=== PATIENT | male | born 1955 | race Caucasian/White ===

== ENCOUNTER 2018-03-04 06:39 | Day surgery (SDC) | payer MEDICAID ==
[~2018-03-04] VITALS: Ht 193 cm; Wt 88.0 kg
[2018-03-04] MEDS ORDERED: OXYC15TA88 PO (07:01)
[2018-03-04] MEDS ORDERED: PROC10TA10 PO (07:01)
[2018-03-04] MEDS ORDERED: LIDO5CRE2 TP (07:01)
[2018-03-04] MEDS ORDERED: ONDA8TAB9 PO (07:01)
[2018-03-04] MEDS ORDERED: MORP-64 PO (07:01)
[2018-03-04 07:13] VITALS: BP 127/80
[2018-03-04 07:18] LABS: BASOPHILS # (AUTO) 0.1 X10'3 (0-0.2); BASOPHILS % (AUTO) 0.8 % (0-1); EOSINOPHILS # (AUTO) 0.3 X10'3 (0-0.9); LYMPHOCYTES # (AUTO) 1.4 X10'3 (1.1-4.8); LYMPHOCYTES % (AUTO) 8.5 % (21-51); MEAN CORPUSCULAR HEMOGLOBIN 22.8 PG (27.0-31.0); MEAN CORPUSCULAR HGB CONC 31.9 % (33.0-36.5); MEAN CORPUSCULAR VOLUME 71.5 FL (78-98); MEAN PLATELET VOLUME 7.9 FL (7.4-10.4); MONOCYTES # (AUTO) 2.1 X10'3 (0-0.9); MONOCYTES % (AUTO) 12.2 % (2-12); NEUTROPHILS % (AUTO) 76.5 % (42-75); PRE OP HEMATOCRIT 29.4 % (42.0-52.0); PRE OP PLATELET COUNT 529 X10'3 (140-440); RED BLOOD COUNT 4.11 X10'6 (4.70-6.10); RED CELL DISTRIBUTION WIDTH 26.7 % (11.5-14.5)
[2018-03-04] MEDS ORDERED: normal saline 1000ml 1,000 ML IV PRN (07:25)
[2018-03-04 07:28] LABS: INR 1.1 INR; PROTHROMBIN TIME 10.9 SECONDS (9.0-12.0)
[2018-03-04 07:31] LABS: PRE OP HEMOGLOBIN 9.4 g/dL (14.0-17.9)
[2018-03-04 07:32] LABS: ALBUMIN 2.3 G/DL (3.4-5.0); ANION GAP 10 (8-16); BLOOD UREA NITROGEN 18 MG/DL (7-18); BUN/CREATININE RATIO 18.8 (5.4-32.0); CHLORIDE 100 MMOL/L (99-107); CREATININE 0.96 MG/DL (0.60-1.10); GLUCOSE 103 MG/DL (70-104); POTASSIUM 4.2 MMOL/L (3.5-5.1); SODIUM 135 MMOL/L (135-145); TOTAL CARBON DIOXIDE 25.3 MMOL/L (24-32); eGFR 80 ML/MIN
[2018-03-04] MEDS ORDERED: fentaNYL/PF 50MCG/1 ML 2ML syringe IV PRN (08:25)
[2018-03-04] MEDS ORDERED: heparin sodium, porcine/PF 100unit/ml 5ML syringe ICATH ONE (08:25)
[2018-03-04] MEDS ORDERED: LIDOcaine 1%/PF 5ML 10 MG/ML VIAL SQ ONE (08:25)
[2018-03-04] MEDS ORDERED: midazolam 2 mg/2 ml injection IV PRN (08:25)
[2018-03-04 08:34] LABS: ANISOCYTOSIS 3+; ELLIPTOCYTES FEW; HYPOCHROMASIA 1+; MICROCYTOSIS 1+; PLATELET ESTIMATE INCREASED; POIKILOCYTOSIS 1+; POLYCHROMASIA 1+; TARGET CELLS FEW; TEAR DROP CELLS FEW
[2018-03-04] MEDS ORDERED: LIDOcaine 1%/PF 5ML 10 MG/ML VIAL ONE (08:35)
[2018-03-04] MEDS ORDERED: heparin sodium, porcine/PF 100unit/ml 5ML syringe ONE (08:42)
[2018-03-04] MEDS ORDERED: midazolam 2 mg/2 ml injection ONE (08:42)
[2018-03-04] MEDS ORDERED: fentaNYL/PF 50MCG/1 ML 2ML syringe ONE (08:43)
[2018-03-04 09:35] VITALS: BP 133/88
[2018-03-04 09:45] VITALS: BP 129/83
[2018-03-04 10:00] VITALS: BP 138/88
[2018-03-04 10:15] VITALS: BP 134/82
[2018-03-04 10:30] VITALS: BP 135/85
== END 2018-03-04 10:41 | disposition home or self-care (01) ==
LOC: SSTAY O 06:39
PROVIDERS: ATTEND Radiology Diagnostic Radiology
DX: C18.2 Malignant neoplasm of ascending colon (principal); K21.9 Gastro-esophageal reflux disease without esophagitis; E23.2 Diabetes insipidus; Z86.19 Personal history of other infectious and parasitic diseases; Z88.4 Allergy status to anesthetic agent; Z79.891 Long term (current) use of opiate analgesic; Z87.891 Personal history of nicotine dependence; Z86.2 Personal history of diseases of the blood and blood-forming organs and certain disorders involving the immune mechanism; Z85.05 Personal history of malignant neoplasm of liver; Z98.890 Other specified postprocedural states; Z79.899 Other long term (current) drug therapy
CPT/HCPCS: 36415; 36561; 76937; 77001; 80048; 85025; 85610; 99152; 99153; A6219; C1788; C1894; J1642; J2001; J2250; J3010; J7030

== ENCOUNTER 2018-03-08 06:31 | Inpatient (IN) | payer MEDICAID ==
[2018-03-08] VITALS (20 sets, daily range): BP systolic 123–171; BP diastolic 58–97
[~2018-03-08] VITALS: Ht 193 cm; Wt 87.8 kg
[~2018-03-08 06:31] MED LIST: LIDO5CRE2 TP; MORP-64 PO; ONDA8TAB9 PO; OXYC15TA88 PO; PROC10TA10 PO
[2018-03-08] MEDS ORDERED: ondansetron/PF 4mg/2ml inj IV ONE (07:25)
[2018-03-08] MEDS ORDERED: normal saline 1000ML IV soln IVB ONE (07:25)
[2018-03-08] MEDS ORDERED: morphine 4 MG/ML inj SYRINge IV ONE (07:25)
[2018-03-08 08:31] LABS: BASOPHILS % (AUTO) 0.1 % (0-1); EOSINOPHILS # (AUTO) 0.2 X10'3 (0-0.9); EOSINOPHILS % (AUTO) 2.1 % (0-6); HEMATOCRIT 27.6 % (42.0-52.0); HEMOGLOBIN 8.8 g/dl (14.0-17.9); LYMPHOCYTES # (AUTO) 1.1 X10'3 (1.1-4.8); LYMPHOCYTES % (AUTO) 8.9 % (21-51); MEAN CORPUSCULAR HEMOGLOBIN 22.6 PG (27.0-31.0); MEAN CORPUSCULAR HGB CONC 31.8 % (33.0-36.5); MEAN PLATELET VOLUME 8.1 FL (7.4-10.4); MONOCYTES # (AUTO) 1.9 X10'3 (0-0.9); MONOCYTES % (AUTO) 15.7 % (2-12); NEUTROPHILS # (AUTO) 8.7 X10'3 (1.8-7.7); NEUTROPHILS % (AUTO) 73.2 % (42-75); PLATELET COUNT 500 X10'3 (140-440); RED BLOOD COUNT 3.89 X10'6 (4.70-6.10); RED CELL DISTRIBUTION WIDTH 26.5 % (11.5-14.5); WHITE BLOOD COUNT 11.9 X10'3 (4.5-11.0)
[2018-03-08 08:36] LABS: ALANINE AMINOTRANSFERASE 72 U/L (12-78); ALBUMIN 2.3 G/DL (3.4-5.0); ALBUMIN/GLOBULIN RATIO 0.5 (1.1-1.5); ALKALINE PHOSPHATASE 170 IU/L (46-116); ANION GAP 11 (8-16); ASPARTATE AMINO TRANSFERASE 86 U/L (10-37); BILIRUBIN,TOTAL 0.5 MG/DL (0.1-1.0); BLOOD UREA NITROGEN 21 MG/DL (7-18); BUN/CREATININE RATIO 22.1 (5.4-32.0); CHLORIDE 101 MMOL/L (99-107); CREATININE 0.95 MG/DL (0.60-1.10); GLUCOSE 92 MG/DL (70-104); POTASSIUM 3.8 MMOL/L (3.5-5.1); SODIUM 137 MMOL/L (135-145); TOTAL CARBON DIOXIDE 25.4 MMOL/L (24-32); TOTAL PROTEIN 7.1 G/DL (6.4-8.2); eGFR 81 ML/MIN
[2018-03-08 08:45] LABS: ANISOCYTOSIS 3+; HYPOCHROMASIA 1+; PLATELET ESTIMATE INCREASED
[2018-03-08 08:46] LABS: POLYCHROMASIA 1+
[2018-03-08 08:51] LABS: INR 1.1 INR; PROTHROMBIN TIME 11.4 SECONDS (9.0-12.0)
[2018-03-08] MEDS ORDERED: HYDROcodone/acetaminophen 10/325mg tab PO ONE (09:10)
[2018-03-08] MEDS ORDERED: normal saline 1000ml 1,000 ML IV ONE (09:10)
[2018-03-08 10:13] LABS: CLARITY,URINE CLEAR (Clear); COLOR,URINE YELLOW (Yellow); GLUCOSE, URINE NEGATIVE (Neg); KETONES,URINE NEGATIVE (Neg); LEUKOCYTE ESTERASE ,URINE NEGATIVE (Neg); NITRITES, URINE NEGATIVE (Neg); OCCULT BLOOD,URINE NEGATIVE (Neg); PH,URINE 5.5 (4.8-8.0); PROTEIN,URINE NEGATIVE (Neg); UROBILINOGEN,URINE 0.2 E.U/dL (0.2-1.0)
[2018-03-08 10:20] LABS: UA COLLECTION TYPE CLN CATCH MIDSTREAM
[2018-03-08] MEDS ORDERED: potassium Cl 40MEQ/NS 500ml 500 ML IV PRN ×2 (11:50)
[2018-03-08] MEDS ORDERED: acetaminophen 325mg tablet PO PRN ×2 (11:50)
[2018-03-08] MEDS ORDERED: morphine 2 MG/ML inj. syringe IV PRN ×2 (11:50)
[2018-03-08] MEDS ORDERED: mag hydrox/Alum hydrox/simeth 30ml oral suspension PO PRN (11:50)
[2018-03-08] MEDS ORDERED: HYDROcodone/acetaminophen 10/325mg tab PO PRN (11:50)
[2018-03-08] MEDS ORDERED: magnesium hydroxide 30ml (MOM) UD suspension PO PRN (11:50)
[2018-03-08] MEDS ORDERED: magnesium 4gm in 100ml NS 100 ML IV PRN (11:50)
[2018-03-08] MEDS ORDERED: magnesium Cl slow-release 64mg tablet PO PRN (11:50)
[2018-03-08] MEDS ORDERED: HYDROcodone/acetaminophen 5mg/325mg tablet PO PRN (11:50)
[2018-03-08] MEDS ORDERED: potassium Cl 20 mEq SR tablet PO PRN ×2 (11:50)
[2018-03-08] MEDS ORDERED: magnesium 1gm/100ml D5W IVPB 100 ML IV PRN (11:50)
[2018-03-08] MEDS: normal saline 1000ml 1,000 ML IV SCH ×2 (14:10→17:58)
[2018-03-08] MEDS ORDERED: BUPIVAcaine/PF 2.5mg/ml (0.25%) 10ml vial ONE (14:26)
[2018-03-08] MEDS ORDERED: ceFAZolin 1000mg inj ONE (14:26)
[2018-03-08] MEDS ORDERED: ringers solution, lacted 1,000 ML IV SCH (15:04)
[2018-03-08] MEDS ORDERED: meperidine/PF 25mg/ml syringe IV PRN ×3 (15:05)
[2018-03-08] MEDS ORDERED: morphine 4 MG/ML inj SYRINge IV PRN (15:05)
[2018-03-08] MEDS ORDERED: proCHLORperazine 10 MG/2 ml inj IV PRN (15:05)
[2018-03-08] MEDS ORDERED: ondansetron/PF 4mg/2ml inj IV PRN (15:05)
[2018-03-08] MEDS ORDERED: neostigmine methylsulfate 1 MG/ML 10ml vial ONE (15:15)
[2018-03-08] MEDS ORDERED: sevoflurane 250ml liquid IH ONE (15:15)
[2018-03-08] MEDS ORDERED: dexamethasone sod phosphate 10mg/ml inj ONE (15:15)
[2018-03-08] MEDS ORDERED: midazolam 2 mg/2 ml injection ONE (15:27)
[2018-03-08] MEDS ORDERED: LIDOcaine 2% (20mg/ml) 5ml vial ONE (15:29)
[2018-03-08] MEDS ORDERED: propofol inj 20 ML IV ONE (15:29)
[2018-03-08] MEDS ORDERED: fentaNYL /PF 50mcg/ml 5ml ampule ONE (15:29)
[2018-03-08] MEDS ORDERED: ondansetron/PF 4mg/2ml inj ONE (15:38)
[2018-03-08] MEDS ORDERED: ketorolac trometh. 30mg/ml inj. ONE (16:35)
[2018-03-08] MEDS ORDERED: glycopyrrolate 0.2mg/ml inj ONE (16:37)
[2018-03-08] MEDS: morphine 4 MG/ML inj SYRINge IV PRN ×2 (17:00→17:30)
[2018-03-08 17:08] LABS: HEMATOCRIT 25.3 % (42.0-52.0); HEMOGLOBIN 7.9 g/dl (14.0-17.9); MEAN CORPUSCULAR HEMOGLOBIN 22.2 PG (27.0-31.0); MEAN CORPUSCULAR VOLUME 71.5 FL (78-98); MEAN PLATELET VOLUME 7.6 FL (7.4-10.4); PLATELET COUNT 495 X10'3 (140-440); RED BLOOD COUNT 3.54 X10'6 (4.70-6.10); RED CELL DISTRIBUTION WIDTH 26.7 % (11.5-14.5); WHITE BLOOD COUNT 10.9 X10'3 (4.5-11.0)
[2018-03-08] MEDS ORDERED: naloxone 0.4 mg/ml inj IV PRN (18:10)
[2018-03-08] MEDS ORDERED: CADD PCA waste documentation MC PRN (18:10)
[2018-03-08] MEDS: HYDROmorphone/NS 1 mg/ml CADD 50 ML IV SCH ×3 (18:33→23:00)
[2018-03-08] MEDS: heparin, porcine 5000 units/ml vial SQ SCH (20:00)
[2018-03-08] MEDS ORDERED: temazepam 15mg capsule PO PRN (21:00)
[2018-03-09] VITALS (8 sets, daily range): BP systolic 137–153; BP diastolic 77–92
[2018-03-09] MEDS: HYDROmorphone/NS 1 mg/ml CADD 50 ML IV SCH ×12 (01:00→23:22)
[2018-03-09] MEDS: normal saline 1000ml 1,000 ML IV SCH ×2 (04:03→15:27)
[2018-03-09 04:11] LABS: BASOPHILS % (AUTO) 0.1 % (0-1); EOSINOPHILS % (AUTO) 0.2 % (0-6); HEMATOCRIT 33.7 % (42.0-52.0); HEMOGLOBIN 10.6 g/dl (14.0-17.9); LYMPHOCYTES # (AUTO) 0.8 X10'3 (1.1-4.8); LYMPHOCYTES % (AUTO) 3.7 % (21-51); MEAN CORPUSCULAR HEMOGLOBIN 23.5 PG (27.0-31.0); MEAN CORPUSCULAR HGB CONC 31.5 % (33.0-36.5); MEAN CORPUSCULAR VOLUME 74.5 FL (78-98); MEAN PLATELET VOLUME 7.5 FL (7.4-10.4); MONOCYTES # (AUTO) 1.3 X10'3 (0-0.9); MONOCYTES % (AUTO) 6.1 % (2-12); NEUTROPHILS # (AUTO) 18.8 X10'3 (1.8-7.7); NEUTROPHILS % (AUTO) 89.9 % (42-75); PLATELET COUNT 494 X10'3 (140-440); RED BLOOD COUNT 4.52 X10'6 (4.70-6.10); RED CELL DISTRIBUTION WIDTH 25.7 % (11.5-14.5); WHITE BLOOD COUNT 20.9 X10'3 (4.5-11.0)
[2018-03-09 04:19] LABS: ALANINE AMINOTRANSFERASE 54 U/L (12-78); ALBUMIN 1.9 G/DL (3.4-5.0); ALBUMIN/GLOBULIN RATIO 0.5 (1.1-1.5); ALKALINE PHOSPHATASE 128 IU/L (46-116); ANION GAP 11 (8-16); ASPARTATE AMINO TRANSFERASE 67 U/L (10-37); BILIRUBIN,TOTAL 1.3 MG/DL (0.1-1.0); BLOOD UREA NITROGEN 16 MG/DL (7-18); BUN/CREATININE RATIO 19.8 (5.4-32.0); CALCIUM 7.7 MG/DL (8.5-10.1); CHLORIDE 104 MMOL/L (99-107); CREATININE 0.81 MG/DL (0.60-1.10); GLUCOSE 108 MG/DL (70-104); MAGNESIUM 1.8 MG/DL (1.5-2.4); POTASSIUM 4.5 MMOL/L (3.5-5.1); SODIUM 137 MMOL/L (135-145); TOTAL CARBON DIOXIDE 22.4 MMOL/L (24-32); TOTAL PROTEIN 5.9 G/DL (6.4-8.2); eGFR > 90 ML/MIN
[2018-03-09 04:24] LABS: INR 1.2 INR; PROTHROMBIN TIME 11.6 SECONDS (9.0-12.0)
[2018-03-09 05:40] LABS: ANISOCYTOSIS 3+; PLATELET ESTIMATE INCREASED; TOTAL CELLS COUNTED 100
[2018-03-09 05:41] LABS: POLYCHROMASIA FEW; TARGET CELLS FEW
[2018-03-09] MEDS: K and/or MAG REPLACEMENT MC SCH (07:28)
[2018-03-09] MEDS: heparin, porcine 5000 units/ml vial SQ SCH ×2 (08:39→20:03)
[2018-03-09] MEDS ORDERED: CADD PCA waste documentation MC SCH (23:20)
[2018-03-10] VITALS: BP 150/94
[2018-03-10] MEDS: normal saline 1000ml 1,000 ML IV SCH ×2 (02:31→13:16)
[2018-03-10] MEDS: HYDROmorphone/NS 1 mg/ml CADD 50 ML IV SCH ×4 (02:33→09:00)
[2018-03-10 05:14] LABS: BASOPHILS % (AUTO) 0.1 % (0-1); EOSINOPHILS # (AUTO) 0.2 X10'3 (0-0.9); EOSINOPHILS % (AUTO) 1.6 % (0-6); HEMATOCRIT 32.8 % (42.0-52.0); HEMOGLOBIN 10.1 g/dl (14.0-17.9); LYMPHOCYTES # (AUTO) 1.1 X10'3 (1.1-4.8); LYMPHOCYTES % (AUTO) 6.9 % (21-51); MEAN CORPUSCULAR HEMOGLOBIN 23.4 PG (27.0-31.0); MEAN CORPUSCULAR HGB CONC 30.9 % (33.0-36.5); MEAN CORPUSCULAR VOLUME 75.7 FL (78-98); MEAN PLATELET VOLUME 8.2 FL (7.4-10.4); MONOCYTES # (AUTO) 1.8 X10'3 (0-0.9); MONOCYTES % (AUTO) 11.4 % (2-12); NEUTROPHILS # (AUTO) 12.8 X10'3 (1.8-7.7); PLATELET COUNT 508 X10'3 (140-440); RED BLOOD COUNT 4.33 X10'6 (4.70-6.10); RED CELL DISTRIBUTION WIDTH 26.2 % (11.5-14.5)
[2018-03-10 05:45] LABS: INR 1.2 INR; PROTHROMBIN TIME 11.6 SECONDS (9.0-12.0)
[2018-03-10 05:57] LABS: ALANINE AMINOTRANSFERASE 49 U/L (12-78); ALBUMIN 1.9 G/DL (3.4-5.0); ALBUMIN/GLOBULIN RATIO 0.4 (1.1-1.5); ALKALINE PHOSPHATASE 117 IU/L (46-116); ANION GAP 8 (8-16); ASPARTATE AMINO TRANSFERASE 66 U/L (10-37); BILIRUBIN,TOTAL 0.7 MG/DL (0.1-1.0); BLOOD UREA NITROGEN 15 MG/DL (7-18); BUN/CREATININE RATIO 16.9 (5.4-32.0); CALCIUM 8.1 MG/DL (8.5-10.1); CHLORIDE 105 MMOL/L (99-107); CREATININE 0.89 MG/DL (0.60-1.10); GLUCOSE 99 MG/DL (70-104); POTASSIUM 4.1 MMOL/L (3.5-5.1); SODIUM 138 MMOL/L (135-145); TOTAL CARBON DIOXIDE 25.5 MMOL/L (24-32); TOTAL PROTEIN 6.3 G/DL (6.4-8.2); eGFR 87 ML/MIN
[2018-03-10 07:00] VITALS: BP 164/97
[2018-03-10] MEDS: K and/or MAG REPLACEMENT MC SCH (08:00)
[2018-03-10] MEDS: heparin, porcine 5000 units/ml vial SQ SCH ×2 (08:18→19:51)
[2018-03-10] MEDS ORDERED: HYDROmorphone inj. 0.5 MG/0.5 ML DISP.SYRIN IV PRN (10:50)
[2018-03-10] MEDS ORDERED: HYDROmorphone 1 mg/ml syringe IV PRN (10:53)
[2018-03-10 11:00] VITALS: BP 150/86
[2018-03-10] MEDS: ketorolac trometh. 30mg/ml inj. IV SCH ×3 (11:30→19:51)
[2018-03-10] MEDS: HYDROmorphone 1 mg/ml syringe IV PRN ×3 (11:36→20:29)
[2018-03-10] MEDS: docusate sodium 100mg/10ml UD cup PO SCH (19:51)
[2018-03-10 20:00] VITALS: BP 157/99
[2018-03-11 00:04] VITALS: BP 153/88
[2018-03-11] MEDS: normal saline 1000ml 1,000 ML IV SCH ×2 (00:44→12:27)
[2018-03-11] MEDS: HYDROmorphone 1 mg/ml syringe IV PRN ×6 (00:44→23:19)
[2018-03-11] MEDS: ketorolac trometh. 30mg/ml inj. IV SCH ×4 (01:38→20:00)
[2018-03-11] MEDS: ondansetron/PF 4mg/2ml inj IV PRN ×2 (06:52→19:22)
[2018-03-11] MEDS: heparin, porcine 5000 units/ml vial SQ SCH ×2 (07:37→19:33)
[2018-03-11 07:54] VITALS: BP 145/84
[2018-03-11] MEDS: K and/or MAG REPLACEMENT MC SCH (08:00)
[2018-03-11] MEDS: docusate sodium 100mg/10ml UD cup PO SCH ×3 (08:00→19:33)
[2018-03-11 08:16] LABS: BASOPHILS % (AUTO) 0.2 % (0-1); EOSINOPHILS % (AUTO) 0.3 % (0-6); LYMPHOCYTES # (AUTO) 0.6 X10'3 (1.1-4.8); LYMPHOCYTES % (AUTO) 6.3 % (21-51); MEAN CORPUSCULAR HEMOGLOBIN 23.6 PG (27.0-31.0); MEAN CORPUSCULAR HGB CONC 31.3 % (33.0-36.5); MEAN CORPUSCULAR VOLUME 75.3 FL (78-98); MEAN PLATELET VOLUME 8.2 FL (7.4-10.4); MONOCYTES # (AUTO) 1.5 X10'3 (0-0.9); MONOCYTES % (AUTO) 14.5 % (2-12); NEUTROPHILS # (AUTO) 7.9 X10'3 (1.8-7.7); NEUTROPHILS % (AUTO) 78.7 % (42-75); PLATELET COUNT 515 X10'3 (140-440); RED BLOOD COUNT 4.25 X10'6 (4.70-6.10); RED CELL DISTRIBUTION WIDTH 26.4 % (11.5-14.5); WHITE BLOOD COUNT 10.1 X10'3 (4.5-11.0)
[2018-03-11 08:34] LABS: ALANINE AMINOTRANSFERASE 45 U/L (12-78); ALBUMIN 1.7 G/DL (3.4-5.0); ALBUMIN/GLOBULIN RATIO 0.4 (1.1-1.5); ALKALINE PHOSPHATASE 106 IU/L (46-116); ANION GAP 10 (8-16); ASPARTATE AMINO TRANSFERASE 66 U/L (10-37); BILIRUBIN,TOTAL 1.1 MG/DL (0.1-1.0); BLOOD UREA NITROGEN 18 MG/DL (7-18); BUN/CREATININE RATIO 18.6 (5.4-32.0); CALCIUM 7.5 MG/DL (8.5-10.1); CHLORIDE 105 MMOL/L (99-107); CREATININE 0.97 MG/DL (0.60-1.10); GLUCOSE 127 MG/DL (70-104); MAGNESIUM 1.9 MG/DL (1.5-2.4); POTASSIUM 3.7 MMOL/L (3.5-5.1); SODIUM 138 MMOL/L (135-145); TOTAL CARBON DIOXIDE 22.7 MMOL/L (24-32); TOTAL PROTEIN 5.8 G/DL (6.4-8.2); eGFR 79 ML/MIN
[2018-03-11 08:58] LABS: ANISOCYTOSIS 3+; PLATELET ESTIMATE INCREASED
[2018-03-11 11:41] VITALS: BP 159/97
[2018-03-11] MEDS: potassium Cl 20mEq in D5-NS 1,000 ML IV SCH (19:22)
[2018-03-11 20:00] VITALS: BP 155/98
[2018-03-11] MEDS ORDERED: ondansetron/PF 4mg/2ml inj IV PRN (23:15)
[2018-03-11] MEDS ORDERED: HYDROmorphone 2mg/ml vial IV PRN (23:15)
[2018-03-11] MEDS: proCHLORperazine 10 MG/2 ml inj IV PRN (23:18)
[2018-03-12 00:12] VITALS: BP 156/88
[2018-03-12] MEDS: HYDROmorphone 1 mg/ml syringe IV PRN ×6 (04:00→17:25)
[2018-03-12] MEDS: potassium Cl 20mEq in D5-NS 1,000 ML IV SCH ×2 (04:03→17:57)
[2018-03-12 07:06] VITALS: BP 140/87
[2018-03-12] MEDS: docusate sodium 100mg/10ml UD cup PO SCH ×2 (08:00→20:00)
[2018-03-12] MEDS: K and/or MAG REPLACEMENT MC SCH (08:00)
[2018-03-12] MEDS: proCHLORperazine 10 MG/2 ml inj IV PRN (08:22)
[2018-03-12] MEDS: heparin, porcine 5000 units/ml vial SQ SCH ×2 (08:23→19:53)
[2018-03-12 09:09] LABS: ALANINE AMINOTRANSFERASE 44 U/L (12-78); ALBUMIN 1.7 G/DL (3.4-5.0); ALBUMIN/GLOBULIN RATIO 0.4 (1.1-1.5); ALKALINE PHOSPHATASE 106 IU/L (46-116); ANION GAP 9 (8-16); ASPARTATE AMINO TRANSFERASE 64 U/L (10-37); BILIRUBIN,TOTAL 0.9 MG/DL (0.1-1.0); BLOOD UREA NITROGEN 22 MG/DL (7-18); BUN/CREATININE RATIO 21.2 (5.4-32.0); CALCIUM 7.7 MG/DL (8.5-10.1); CHLORIDE 107 MMOL/L (99-107); CREATININE 1.04 MG/DL (0.60-1.10); GLUCOSE 145 MG/DL (70-104); MAGNESIUM 2.2 MG/DL (1.5-2.4); SODIUM 141 MMOL/L (135-145); TOTAL CARBON DIOXIDE 24.9 MMOL/L (24-32); eGFR 73 ML/MIN
[2018-03-12] MEDS: pantoprazole 40 MG vial IV SCH (10:51)
[2018-03-12 10:59] VITALS: BP 159/93
[2018-03-12 17:25] LABS: ABG BASE EXCESS -5.2 mmol/L (-2.0-3.0); ABG HCO3 19.9 mmol/L (22.0-26.0); ABG OXYGEN SATURATION 89.5 % (95-98); ABG PCO2 (T) 36.4 mmHg (35.0-48.0); ABG PH (T) 7.353 (7.350-7.450); ABG PO2 (T) 59.8 mmHg (83-108); FCOHb 0.9 % (0.5-1.5); FMetHb 0.3 % (0.3-1.12); FO2Hb 88.4 % (94-100); PATIENT TEMPERATURE 36.4; TOTAL HEMOGLOBIN 11.8 G/dl (14.0-18.0)
[2018-03-12] MEDS ORDERED: normal saline 1000ml 1,000 ML IV SCH (17:30)
[2018-03-12 17:33] LABS: BASOPHILS % (AUTO) 0.6 % (0-1); EOSINOPHILS % (AUTO) 0.2 % (0-6); HEMATOCRIT 35.6 % (42.0-52.0); HEMOGLOBIN 11.3 g/dl (14.0-17.9); LYMPHOCYTES % (AUTO) 12.8 % (21-51); MEAN CORPUSCULAR HEMOGLOBIN 23.8 PG (27.0-31.0); MEAN CORPUSCULAR HGB CONC 31.7 % (33.0-36.5); MEAN CORPUSCULAR VOLUME 75.2 FL (78-98); MEAN PLATELET VOLUME 7.8 FL (7.4-10.4); MONOCYTES # (AUTO) 0.7 X10'3 (0-0.9); MONOCYTES % (AUTO) 9.2 % (2-12); NEUTROPHILS # (AUTO) 6.2 X10'3 (1.8-7.7); NEUTROPHILS % (AUTO) 77.2 % (42-75); PLATELET COUNT 763 X10'3 (140-440); RED BLOOD COUNT 4.73 X10'6 (4.70-6.10); RED CELL DISTRIBUTION WIDTH 26.9 % (11.5-14.5)
[2018-03-12] MEDS ORDERED: hydrALAZINE 20mg/ml inj. IV ONE (17:35)
[2018-03-12 17:45] LABS: ALANINE AMINOTRANSFERASE 46 U/L (12-78); ALBUMIN 1.9 G/DL (3.4-5.0); ALBUMIN/GLOBULIN RATIO 0.4 (1.1-1.5); ALKALINE PHOSPHATASE 116 IU/L (46-116); ANION GAP 10 (8-16); ASPARTATE AMINO TRANSFERASE 67 U/L (10-37); BILIRUBIN,TOTAL 0.9 MG/DL (0.1-1.0); BLOOD UREA NITROGEN 25 MG/DL (7-18); CHLORIDE 107 MMOL/L (99-107); CREATININE 1.39 MG/DL (0.60-1.10); GLUCOSE 186 MG/DL (70-104); POTASSIUM 4.4 MMOL/L (3.5-5.1); SODIUM 142 MMOL/L (135-145); TOTAL CARBON DIOXIDE 25.3 MMOL/L (24-32); TOTAL PROTEIN 6.7 G/DL (6.4-8.2); eGFR 52 ML/MIN
[2018-03-12] MEDS ORDERED: HYDROmorphone/NS 1 mg/ml CADD 50 ML IV SCH (17:45)
[2018-03-12] MEDS ORDERED: CADD PCA waste documentation MC SCH (17:50)
[2018-03-12] MEDS ORDERED: hydrALAZINE 20mg/ml inj. IV PRN (17:50)
[2018-03-12 18:16] LABS: ANISOCYTOSIS 3+; HYPOCHROMASIA 1+; PLATELET ESTIMATE INCREASED; TARGET CELLS 1+
[2018-03-12 18:17] LABS: MICROCYTOSIS FEW; POLYCHROMASIA FEW
[2018-03-12 18:18] LABS: ELLIPTOCYTES FEW
[2018-03-12 19:00] VITALS: BP 147/85
[2018-03-12] MEDS: albuterol 2.5 MG/3 ML nebule NEB SCH ×2 (19:06→23:02)
[2018-03-12] MEDS: piperacillin/tazo 4.5gm/100ml 100 ML IV SCH (19:52)
[2018-03-12] MEDS: methylPREDNISolone sod succ 125mg/2ml vial IV SCH ×2 (19:54→20:00)
[2018-03-12] MEDS: HYDROmorphone/NS 1 mg/ml CADD 50 ML IV SCH ×3 (20:04→23:00)
[2018-03-12 23:00] VITALS: BP 134/84
[2018-03-13] VITALS (7 sets, daily range): BP systolic 113–128; BP diastolic 72–83
[2018-03-13] MEDS: piperacillin/tazo 4.5gm/100ml 100 ML IV SCH ×3 (00:50→16:23)
[2018-03-13] MEDS: HYDROmorphone/NS 1 mg/ml CADD 50 ML IV SCH ×11 (01:00→23:00)
[2018-03-13] MEDS: albuterol 2.5 MG/3 ML nebule NEB SCH ×6 (02:53→23:19)
[2018-03-13] MEDS: potassium Cl 20mEq in D5-NS 1,000 ML IV SCH ×2 (03:28→10:31)
[2018-03-13] MEDS: methylPREDNISolone sod succ 125mg/2ml vial IV SCH ×3 (03:36→22:12)
[2018-03-13 06:13] LABS: ALANINE AMINOTRANSFERASE 35 U/L (12-78); ALBUMIN 1.5 G/DL (3.4-5.0); ALBUMIN/GLOBULIN RATIO 0.4 (1.1-1.5); ALKALINE PHOSPHATASE 90 IU/L (46-116); ANION GAP 9 (8-16); ASPARTATE AMINO TRANSFERASE 51 U/L (10-37); BILIRUBIN,TOTAL 0.6 MG/DL (0.1-1.0); BLOOD UREA NITROGEN 27 MG/DL (7-18); BUN/CREATININE RATIO 19.9 (5.4-32.0); CALCIUM 7.5 MG/DL (8.5-10.1); CHLORIDE 111 MMOL/L (99-107); CREATININE 1.36 MG/DL (0.60-1.10); GLUCOSE 207 MG/DL (70-104); MAGNESIUM 2.3 MG/DL (1.5-2.4); POTASSIUM 4.6 MMOL/L (3.5-5.1); SODIUM 145 MMOL/L (135-145); TOTAL CARBON DIOXIDE 25.5 MMOL/L (24-32); TOTAL PROTEIN 5.7 G/DL (6.4-8.2); eGFR 53 ML/MIN
[2018-03-13] MEDS: K and/or MAG REPLACEMENT MC SCH (08:00)
[2018-03-13] MEDS: docusate sodium 100mg/10ml UD cup PO SCH ×2 (08:00→20:00)
[2018-03-13] MEDS: pantoprazole 40 MG vial IV SCH (08:57)
[2018-03-13] MEDS: heparin, porcine 5000 units/ml vial SQ SCH ×2 (08:59→22:13)
[2018-03-13] MEDS ORDERED: fat emulsion IV 181.82 ML, MVI, adult No.4 with vit. K 4.55 ML, Trace element-5 inj. 0.... IV SCH ×4 (13:54)
[2018-03-13] MEDS ORDERED: magnesium 4gm in 100ml NS 100 ML IV PRN (13:55)
[2018-03-13] MEDS ORDERED: magnesium Cl slow-release 64mg tablet PO PRN (13:55)
[2018-03-13] MEDS ORDERED: magnesium 1gm/100ml D5W IVPB 100 ML IV PRN (13:55)
[2018-03-13 15:13] LABS: ALANINE AMINOTRANSFERASE 33 U/L (12-78); ALBUMIN 1.6 G/DL (3.4-5.0); ALBUMIN/GLOBULIN RATIO 0.4 (1.1-1.5); ALKALINE PHOSPHATASE 83 IU/L (46-116); ANION GAP 8 (8-16); ASPARTATE AMINO TRANSFERASE 50 U/L (10-37); BILIRUBIN,TOTAL 0.5 MG/DL (0.1-1.0); BLOOD UREA NITROGEN 28 MG/DL (7-18); BUN/CREATININE RATIO 22.4 (5.4-32.0); CALCIUM 8.1 MG/DL (8.5-10.1); CHLORIDE 112 MMOL/L (99-107); CREATININE 1.25 MG/DL (0.60-1.10); GLUCOSE 189 MG/DL (70-104); MAGNESIUM 2.4 MG/DL (1.5-2.4); POTASSIUM 4.3 MMOL/L (3.5-5.1); PREALBUMIN 5.9 MG/DL (19-36); SODIUM 144 MMOL/L (135-145); TOTAL CARBON DIOXIDE 24.5 MMOL/L (24-32); TOTAL PROTEIN 5.9 G/DL (6.4-8.2); TRIGLYCERIDES 108 MG/DL (20-135); eGFR 59 ML/MIN
[2018-03-13] MEDS ORDERED: Dextrose 10%-water IV solution 1,000 ML IV PRN (21:00)
[2018-03-13] MEDS: fat emulsion IV 200 ML, MVI, adult No.4 with vit. K 10 ML, Trace element-5 inj. 1 ML in... IV SCH ×4 (23:09)
[2018-03-14] MEDS: piperacillin/tazo 4.5gm/100ml 100 ML IV SCH ×3 (00:49→16:43)
[2018-03-14] MEDS: HYDROmorphone/NS 1 mg/ml CADD 50 ML IV SCH ×12 (01:00→23:00)
[2018-03-14 03:00] VITALS: BP 142/78
[2018-03-14] MEDS: albuterol 2.5 MG/3 ML nebule NEB SCH ×6 (03:15→23:24)
[2018-03-14 05:56] LABS: BASOPHILS % (AUTO) 0 % (0-1); EOSINOPHILS % (AUTO) 0 % (0-6); HEMATOCRIT 30.2 % (42.0-52.0); HEMOGLOBIN 9.3 g/dl (14.0-17.9); LYMPHOCYTES # (AUTO) 0.6 X10'3 (1.1-4.8); LYMPHOCYTES % (AUTO) 5.6 % (21-51); MEAN CORPUSCULAR HEMOGLOBIN 23.2 PG (27.0-31.0); MEAN CORPUSCULAR HGB CONC 30.8 % (33.0-36.5); MEAN CORPUSCULAR VOLUME 75.4 FL (78-98); MEAN PLATELET VOLUME 8.2 FL (7.4-10.4); MONOCYTES % (AUTO) 8.9 % (2-12); NEUTROPHILS # (AUTO) 9.3 X10'3 (1.8-7.7); NEUTROPHILS % (AUTO) 85.5 % (42-75); PLATELET COUNT 411 X10'3 (140-440); RED BLOOD COUNT 4.01 X10'6 (4.70-6.10); RED CELL DISTRIBUTION WIDTH 26.9 % (11.5-14.5); WHITE BLOOD COUNT 10.9 X10'3 (4.5-11.0)
[2018-03-14 06:00] VITALS: BP 141/81
[2018-03-14 06:29] LABS: ALANINE AMINOTRANSFERASE 33 U/L (12-78); ALBUMIN 1.7 G/DL (3.4-5.0); ALBUMIN/GLOBULIN RATIO 0.4 (1.1-1.5); ALKALINE PHOSPHATASE 87 IU/L (46-116); ANION GAP 9 (8-16); ASPARTATE AMINO TRANSFERASE 52 U/L (10-37); BILIRUBIN,TOTAL 0.4 MG/DL (0.1-1.0); BLOOD UREA NITROGEN 25 MG/DL (7-18); BUN/CREATININE RATIO 19.7 (5.4-32.0); CALCIUM 8.3 MG/DL (8.5-10.1); CHLORIDE 110 MMOL/L (99-107); CREATININE 1.27 MG/DL (0.60-1.10); GLUCOSE 178 MG/DL (70-104); MAGNESIUM 2.4 MG/DL (1.5-2.4); PHOSPHORUS 4.5 MG/DL (2.3-4.5); POTASSIUM 4.6 MMOL/L (3.5-5.1); PREALBUMIN 6.7 MG/DL (19-36); SODIUM 143 MMOL/L (135-145); TOTAL CARBON DIOXIDE 24.1 MMOL/L (24-32); TOTAL PROTEIN 6.1 G/DL (6.4-8.2); TRIGLYCERIDES 124 MG/DL (20-135); eGFR 58 ML/MIN
[2018-03-14 07:35] LABS: ANISOCYTOSIS 3+; PLATELET ESTIMATE NORMAL
[2018-03-14 07:36] LABS: HYPOCHROMASIA 1+
[2018-03-14 07:37] LABS: MICROCYTOSIS 1+
[2018-03-14] MEDS: K and/or MAG REPLACEMENT MC SCH (08:00)
[2018-03-14] MEDS: docusate sodium 100mg/10ml UD cup PO SCH ×2 (08:00→20:00)
[2018-03-14] MEDS: pantoprazole 40 MG vial IV SCH (08:11)
[2018-03-14] MEDS: methylPREDNISolone sod succ 125mg/2ml vial IV SCH (08:11)
[2018-03-14] MEDS: heparin, porcine 5000 units/ml vial SQ SCH ×2 (08:11→21:36)
[2018-03-14 11:00] VITALS: BP 140/76
[2018-03-14 15:00] VITALS: BP 130/80
[2018-03-14 19:00] VITALS: BP 121/64
[2018-03-14] MEDS: methylPREDNISolone sod succ/PF 40mg inj. IV SCH (21:36)
[2018-03-14 22:00] VITALS: BP 128/75
[2018-03-15] MEDS: piperacillin/tazo 4.5gm/100ml 100 ML IV SCH ×4 (00:05→23:46)
[2018-03-15] MEDS: HYDROmorphone/NS 1 mg/ml CADD 50 ML IV SCH ×5 (01:00→09:00)
[2018-03-15 03:00] VITALS: BP 138/83
[2018-03-15 03:19] LABS: UREA NITROGEN 24HR,URINE 14.1 GM/24HR (7-20)
[2018-03-15] MEDS: albuterol 2.5 MG/3 ML nebule NEB SCH ×6 (03:38→23:07)
[2018-03-15] MEDS: fat emulsion IV 200 ML, MVI, adult No.4 with vit. K 10 ML, Trace element-5 inj. 1 ML in... IV SCH ×4 (05:09)
[2018-03-15 06:00] VITALS: BP 143/85
[2018-03-15 06:59] LABS: BASOPHILS % (AUTO) 0 % (0-1); EOSINOPHILS % (AUTO) 0 % (0-6); HEMATOCRIT 31.4 % (42.0-52.0); HEMOGLOBIN 9.7 g/dl (14.0-17.9); LYMPHOCYTES # (AUTO) 0.6 X10'3 (1.1-4.8); LYMPHOCYTES % (AUTO) 4.1 % (21-51); MEAN CORPUSCULAR HEMOGLOBIN 23.4 PG (27.0-31.0); MEAN CORPUSCULAR HGB CONC 30.9 % (33.0-36.5); MEAN CORPUSCULAR VOLUME 75.6 FL (78-98); MEAN PLATELET VOLUME 8.6 FL (7.4-10.4); MONOCYTES # (AUTO) 1.3 X10'3 (0-0.9); MONOCYTES % (AUTO) 8.6 % (2-12); NEUTROPHILS # (AUTO) 13.5 X10'3 (1.8-7.7); NEUTROPHILS % (AUTO) 87.3 % (42-75); PLATELET COUNT 375 X10'3 (140-440); RED BLOOD COUNT 4.15 X10'6 (4.70-6.10); RED CELL DISTRIBUTION WIDTH 27.1 % (11.5-14.5); WHITE BLOOD COUNT 15.5 X10'3 (4.5-11.0)
[2018-03-15 07:33] LABS: ANISOCYTOSIS 3+; MICROCYTOSIS 1+; PLATELET ESTIMATE NORMAL
[2018-03-15 07:34] LABS: HYPOCHROMASIA 1+; POIKILOCYTOSIS FEW; POLYCHROMASIA FEW; TARGET CELLS FEW
[2018-03-15 07:35] LABS: ALANINE AMINOTRANSFERASE 34 U/L (12-78); ALBUMIN 1.8 G/DL (3.4-5.0); ALBUMIN/GLOBULIN RATIO 0.4 (1.1-1.5); ALKALINE PHOSPHATASE 94 IU/L (46-116); ANION GAP 9 (8-16); ASPARTATE AMINO TRANSFERASE 53 U/L (10-37); BILIRUBIN,TOTAL 0.4 MG/DL (0.1-1.0); BLOOD UREA NITROGEN 30 MG/DL (7-18); BUN/CREATININE RATIO 31.9 (5.4-32.0); CALCIUM 8.4 MG/DL (8.5-10.1); CHLORIDE 107 MMOL/L (99-107); CREATININE 0.94 MG/DL (0.60-1.10); GLUCOSE 175 MG/DL (70-104); MAGNESIUM 2.2 MG/DL (1.5-2.4); PHOSPHORUS 3.4 MG/DL (2.3-4.5); POTASSIUM 4.5 MMOL/L (3.5-5.1); SODIUM 141 MMOL/L (135-145); TOTAL CARBON DIOXIDE 24.6 MMOL/L (24-32); TOTAL PROTEIN 6.1 G/DL (6.4-8.2); eGFR 82 ML/MIN
[2018-03-15] MEDS: K and/or MAG REPLACEMENT MC SCH (08:00)
[2018-03-15] MEDS: pantoprazole 40 MG vial IV SCH (08:06)
[2018-03-15] MEDS: methylPREDNISolone sod succ/PF 40mg inj. IV SCH ×2 (08:06→20:09)
[2018-03-15] MEDS: docusate sodium 100mg/10ml UD cup PO SCH ×2 (08:07→20:00)
[2018-03-15] MEDS: heparin, porcine 5000 units/ml vial SQ SCH ×2 (08:07→20:09)
[2018-03-15 11:00] VITALS: BP 150/87
[2018-03-15] MEDS ORDERED: HYDROmorphone inj. 0.5 MG/0.5 ML DISP.SYRIN IV PRN (11:25)
[2018-03-15] MEDS: HYDROmorphone 1 mg/ml syringe IV PRN ×4 (13:53→23:01)
[2018-03-15 15:00] VITALS: BP 134/86
[2018-03-15 19:00] VITALS: BP 160/94
[2018-03-15 23:00] VITALS: BP 164/93
[2018-03-16] MEDS: fat emulsion IV 200 ML, MVI, adult No.4 with vit. K 10 ML, Trace element-5 inj. 1 ML in... IV SCH ×8 (00:13→21:12)
[2018-03-16] MEDS: HYDROmorphone 1 mg/ml syringe IV PRN ×9 (00:55→23:31)
[2018-03-16 03:00] VITALS: BP 143/92
[2018-03-16] MEDS: albuterol 2.5 MG/3 ML nebule NEB SCH ×4 (03:17→15:18)
[2018-03-16 06:00] VITALS: BP 146/89
[2018-03-16 06:59] LABS: BASOPHILS # (AUTO) 0.1 X10'3 (0-0.2); BASOPHILS % (AUTO) 0.4 % (0-1); EOSINOPHILS # (AUTO) 0.1 X10'3 (0-0.9); EOSINOPHILS % (AUTO) 0.9 % (0-6); HEMATOCRIT 31.9 % (42.0-52.0); HEMOGLOBIN 9.9 g/dl (14.0-17.9); LYMPHOCYTES # (AUTO) 1.1 X10'3 (1.1-4.8); LYMPHOCYTES % (AUTO) 6.8 % (21-51); MEAN CORPUSCULAR HEMOGLOBIN 23.4 PG (27.0-31.0); MEAN CORPUSCULAR VOLUME 75.5 FL (78-98); MEAN PLATELET VOLUME 8.9 FL (7.4-10.4); MONOCYTES # (AUTO) 1.3 X10'3 (0-0.9); MONOCYTES % (AUTO) 7.9 % (2-12); NEUTROPHILS # (AUTO) 13.4 X10'3 (1.8-7.7); PLATELET COUNT 343 X10'3 (140-440); RED BLOOD COUNT 4.22 X10'6 (4.70-6.10); RED CELL DISTRIBUTION WIDTH 26.9 % (11.5-14.5)
[2018-03-16 07:11] LABS: ALBUMIN 1.9 G/DL (3.4-5.0); ANION GAP 7 (8-16); BLOOD UREA NITROGEN 23 MG/DL (7-18); CALCIUM 8.3 MG/DL (8.5-10.1); CHLORIDE 102 MMOL/L (99-107); CREATININE 0.82 MG/DL (0.60-1.10); GLUCOSE 163 MG/DL (70-104); POTASSIUM 4.3 MMOL/L (3.5-5.1); SODIUM 136 MMOL/L (135-145); TOTAL CARBON DIOXIDE 27.1 MMOL/L (24-32); eGFR > 90 ML/MIN
[2018-03-16 07:39] LABS: ANISOCYTOSIS 3+; PLATELET ESTIMATE NORMAL; TOTAL CELLS COUNTED 100
[2018-03-16 07:40] LABS: HYPOCHROMASIA 1+; MICROCYTOSIS 1+; POLYCHROMASIA 1+; TARGET CELLS FEW; TEAR DROP CELLS FEW
[2018-03-16] MEDS: piperacillin/tazo 4.5gm/100ml 100 ML IV SCH ×3 (07:53→23:38)
[2018-03-16] MEDS: methylPREDNISolone sod succ/PF 40mg inj. IV SCH (07:54)
[2018-03-16] MEDS: pantoprazole 40 MG vial IV SCH (07:54)
[2018-03-16] MEDS: heparin, porcine 5000 units/ml vial SQ SCH ×2 (07:54→21:03)
[2018-03-16] MEDS: docusate sodium 100mg/10ml UD cup PO SCH ×2 (07:56→20:00)
[2018-03-16] MEDS: K and/or MAG REPLACEMENT MC SCH (08:00)
[2018-03-16 11:00] VITALS: BP 124/91
[2018-03-16 15:00] VITALS: BP 154/89
[2018-03-16] MEDS ORDERED: albuterol 2.5 MG/3 ML nebule NEB PRN (16:50)
[2018-03-16 18:00] VITALS: BP 123/77
[2018-03-16 23:00] VITALS: BP 140/88
[2018-03-17] MEDS: HYDROmorphone 1 mg/ml syringe IV PRN ×4 (01:56→10:03)
[2018-03-17 03:00] VITALS: BP 143/92
[2018-03-17 06:46] LABS: BASOPHILS % (AUTO) 0.1 % (0-1); EOSINOPHILS # (AUTO) 0.3 X10'3 (0-0.9); EOSINOPHILS % (AUTO) 1.7 % (0-6); HEMATOCRIT 33.8 % (42.0-52.0); HEMOGLOBIN 10.5 g/dl (14.0-17.9); LYMPHOCYTES # (AUTO) 1.1 X10'3 (1.1-4.8); LYMPHOCYTES % (AUTO) 6.3 % (21-51); MEAN CORPUSCULAR HEMOGLOBIN 23.4 PG (27.0-31.0); MEAN CORPUSCULAR HGB CONC 31.1 % (33.0-36.5); MEAN CORPUSCULAR VOLUME 75.2 FL (78-98); MEAN PLATELET VOLUME 9.4 FL (7.4-10.4); MONOCYTES # (AUTO) 1.6 X10'3 (0-0.9); MONOCYTES % (AUTO) 8.9 % (2-12); NEUTROPHILS # (AUTO) 14.6 X10'3 (1.8-7.7); PLATELET COUNT 342 X10'3 (140-440); RED BLOOD COUNT 4.49 X10'6 (4.70-6.10); RED CELL DISTRIBUTION WIDTH 26.9 % (11.5-14.5); WHITE BLOOD COUNT 17.6 X10'3 (4.5-11.0)
[2018-03-17 06:55] LABS: ALBUMIN 1.9 G/DL (3.4-5.0); ANION GAP 5 (8-16); BLOOD UREA NITROGEN 19 MG/DL (7-18); BUN/CREATININE RATIO 24.4 (5.4-32.0); CALCIUM 8.3 MG/DL (8.5-10.1); CHLORIDE 102 MMOL/L (99-107); CREATININE 0.78 MG/DL (0.60-1.10); GLUCOSE 90 MG/DL (70-104); POTASSIUM 4.1 MMOL/L (3.5-5.1); SODIUM 136 MMOL/L (135-145); TOTAL CARBON DIOXIDE 28.7 MMOL/L (24-32); eGFR > 90 ML/MIN
[2018-03-17 07:29] VITALS: BP 139/77
[2018-03-17] MEDS: K and/or MAG REPLACEMENT MC SCH (07:35)
[2018-03-17] MEDS: pantoprazole 40 MG vial IV SCH (07:42)
[2018-03-17] MEDS: piperacillin/tazo 4.5gm/100ml 100 ML IV SCH (07:42)
[2018-03-17] MEDS: heparin, porcine 5000 units/ml vial SQ SCH (07:43)
[2018-03-17] MEDS: docusate sodium 100mg/10ml UD cup PO SCH (07:51)
[2018-03-17] MEDS ORDERED: DOCU50LI22 PO (10:31)
[2018-03-17] MEDS ORDERED: HYDR-3964 PO (10:31)
[2018-03-17] MEDS ORDERED: AMOX-422 PO (10:31)
[2018-03-17] MEDS ORDERED: FAMO-128 PO (10:31)
== END 2018-03-17 11:55 | disposition home health service (06) | DRG 231 ==
LOC: ER 06:32 → ED HOLD 11:48 → SUR 3N 14:06 → PCU 3S 03-12 17:50
PROVIDERS: ADMIT Internal Medicine; ATTEND Hospitalist
PROC: 30233N1 Transfusion of Nonautologous Red Blood Cells into Peripheral Vein, Percutaneous Approach (ICD-10-PCS; 2018-03-08)
PROC: 02HV33Z Insertion of Infusion Device into Superior Vena Cava, Percutaneous Approach (ICD-10-PCS; 2018-03-08)
PROC: B548ZZA Ultrasonography of Superior Vena Cava, Guidance (ICD-10-PCS; 2018-03-08)
PROC: 0DBK0ZZ Excision of Ascending Colon, Open Approach (ICD-10-PCS; principal; 2018-03-08 15:15)
PROC: 0D9670Z Drainage of Stomach with Drainage Device, Via Natural or Artificial Opening (ICD-10-PCS; 2018-03-12)
DX: C18.2 Malignant neoplasm of ascending colon (principal); J96.00 Acute respiratory failure, unspecified whether with hypoxia or hypercapnia; J69.0 Pneumonitis due to inhalation of food and vomit; R18.8 Other ascites; C78.7 Secondary malignant neoplasm of liver and intrahepatic bile duct; K56.7 Ileus, unspecified; F17.200 Nicotine dependence, unspecified, uncomplicated; D64.9 Anemia, unspecified; K21.9 Gastro-esophageal reflux disease without esophagitis; Z66 Do not resuscitate; K91.89 Other postprocedural complications and disorders of digestive system; K80.20 Calculus of gallbladder without cholecystitis without obstruction; Z86.19 Personal history of other infectious and parasitic diseases; Z92.21 Personal history of antineoplastic chemotherapy; Z88.8 Allergy status to other drugs, medicaments and biological substances; Y83.8 Other surgical procedures as the cause of abnormal reaction of the patient, or of later complication, without mention of misadventure at the time of the procedure; Y82.8 Other medical devices associated with adverse incidents; Y92.238 Other place in hospital as the place of occurrence of the external cause
CPT/HCPCS: 36415; 36600; 71045; 71046; 74022; 74176; 80048; 80053; 81003; 82803; 82948; 83036; 83605; 83735; 84100; 84134; 84478; 84560; 85018; 85025; 85027; 85610; 86885; 86900; 86901; 86920; 87040; 87070; 93005; 94640; 94760; 96361; 96374; 96375; 97116; 97161; 97530; 97535; 99285; A6253; A6446; A7000; C1758; C9113; G0378; J0360; J0690; J0780; J1100; J1170; J1644; J1885; J2001; J2250; J2270; J2405; J2543; J2704; J2710; J2920; J2930; J3010; J3480; J3490; J7030; J7120; P9016

== ENCOUNTER 2018-03-20 11:10 | Emergency (ER) | payer MEDICAID ==
[~2018-03-20] VITALS: Ht 193 cm; Wt 89.4 kg
[~2018-03-20 11:10] MED LIST changes: +AMOX-422 PO; +DOCU50LI22 PO; +FAMO-128 PO; +HYDR-3964 PO; -LIDO5CRE2 TP; -MORP-64 PO; -ONDA8TAB9 PO; -OXYC15TA88 PO; -PROC10TA10 PO
[2018-03-20 13:35] VITALS: BP 132/78
== END 2018-03-20 14:58 | disposition home or self-care (01) ==
LOC: ER 11:11
DX: K91.89 Other postprocedural complications and disorders of digestive system (principal); K21.9 Gastro-esophageal reflux disease without esophagitis; Z48.01 Encounter for change or removal of surgical wound dressing; Z88.8 Allergy status to other drugs, medicaments and biological substances; Z85.038 Personal history of other malignant neoplasm of large intestine; Z87.19 Personal history of other diseases of the digestive system; Z90.49 Acquired absence of other specified parts of digestive tract; Z98.890 Other specified postprocedural states
CPT/HCPCS: 99283

== ENCOUNTER 2018-03-21 09:31 | Day surgery (SDC) | payer MEDICAID | END 2018-03-21 12:10 | disposition home or self-care (01) | LOC: WOUND CARE 09:31 | PROVIDERS: ATTEND Surgery | DX: T81.31XA Disruption of external operation (surgical) wound, not elsewhere classified, initial encounter (principal); L98.492 Non-pressure chronic ulcer of skin of other sites with fat layer exposed; C22.9 Malignant neoplasm of liver, not specified as primary or secondary; B19.20 Unspecified viral hepatitis C without hepatic coma; F17.210 Nicotine dependence, cigarettes, uncomplicated | CPT/HCPCS: 87070; 87075; 87076; 87077; 87102; 87185; 87186; 97597; 97598; A6449; A6206 ==

== ENCOUNTER 2018-03-26 09:50 | Day surgery (SDC) | payer MEDICAID ==
[~2018-03-26 09:50] MED LIST changes: -AMOX-422 PO; -HYDR-3964 PO
[2018-03-26] MEDS ORDERED: RIFA300C4 (13:56)
== END 2018-03-26 12:55 | disposition home or self-care (01) ==
LOC: WOUND CARE 09:50
PROVIDERS: ATTEND Surgery
DX: T81.31XD Disruption of external operation (surgical) wound, not elsewhere classified, subsequent encounter (principal); L98.492 Non-pressure chronic ulcer of skin of other sites with fat layer exposed; K21.9 Gastro-esophageal reflux disease without esophagitis; K80.20 Calculus of gallbladder without cholecystitis without obstruction; F17.200 Nicotine dependence, unspecified, uncomplicated; Z85.05 Personal history of malignant neoplasm of liver; Z79.899 Other long term (current) drug therapy; Z79.891 Long term (current) use of opiate analgesic; Z85.038 Personal history of other malignant neoplasm of large intestine; Z98.890 Other specified postprocedural states; Z90.49 Acquired absence of other specified parts of digestive tract; Z86.19 Personal history of other infectious and parasitic diseases; Y83.8 Other surgical procedures as the cause of abnormal reaction of the patient, or of later complication, without mention of misadventure at the time of the procedure
CPT/HCPCS: 97597; 97598